=== PATIENT | female | born 1975 | race Caucasian/White ===

== ENCOUNTER 2024-06-12 14:32 | Inpatient (IN) | payer OTHER ==
[~2024-06-12] VITALS: Ht 149.9 cm; Wt 58.1 kg
[2024-06-12 15:20] VITALS: BP 91/62; PULSE 78; RESP 17; TEMP 98.4; O2SAT 100
[2024-06-12] MEDS ORDERED: ULTRAM 50MG50 MG PO (15:27)
[2024-06-12] MEDS ORDERED: DOXYCYCLINE HY100 MG PO (15:27)
[2024-06-12] MEDS ORDERED: VALIUM10 MG PO (15:27)
[2024-06-12 16:20] VITALS: BP 91/62; PULSE 78; RESP 17; TEMP 98.4; O2SAT 100
[2024-06-12] MEDS: SODIUM CHLORIDE 0.9% 1000ML 1,000 ML IV SCH (17:25)
[2024-06-12] MEDS: Morphine 2mg Syringe 2 MG/ML SYR IV PRN (17:27)
[2024-06-12 17:56] LABS: ALBUMIN 3.1 g/dL (3.5-5.0); ALBUMIN/GLOBULIN RATIO 0.7 (0.8-2.0); ANION GAP 14.3 mmol/L (8-16); BILIRUBIN,TOTAL 0.5 mg/dL (0.2-1.2); CALCIUM 8.9 mg/dL (8.4-10.2); CREATININE, SERUM 0.73 mg/dL (0.57-1.11); POTASSIUM 4.3 mmol/L (3.5-5.1); TOTAL PROTEIN 7.3 g/dL (6.5-8.1)
[2024-06-12 18:00] VITALS: BP 98/51
[2024-06-12] MEDS: NICOTINE 14 MG/EA PATCH TOP SCH (18:20)
[2024-06-12 20:41] VITALS: BP 95/63; PULSE 80; RESP 18; TEMP 98.2; O2SAT 100
[2024-06-12 21:00] VITALS: BP 95/63; PULSE 80; RESP 18; TEMP 98.2; O2SAT 100
[2024-06-12] MEDS ORDERED: DIAZEPAM 5 MG TAB PO PRN (23:30)
[2024-06-13 00:20] VITALS: BP 104/77; PULSE 77; RESP 17; TEMP 98.9; O2SAT 99
[2024-06-13] MEDS: DIAZEPAM 5 MG TAB PO SCH (00:24)
[2024-06-13 04:00] VITALS: BP 86/55; PULSE 71; RESP 17; TEMP 98; O2SAT 100
[2024-06-13 05:44] LABS: BASOPHILS # (AUTO) 0.1 (0.0-0.1); BASOPHILS % 0.6 % (0.0-1.0); EOSINOPHILS # (AUTO) 0.3 (0.0-0.4); EOSINOPHILS % 3.1 % (0.0-6.0); HEMATOCRIT 38.9 % (34.2-44.1); HEMOGLOBIN 12.3 g/dL (12.0-16.0); LYMPHOCYTES # (AUTO) 3.3 (1.0-3.2); LYMPHOCYTES % 41.6 % (18.0-39.1); MEAN CORPUSCULAR HEMOGLOBIN 32.2 pg (28-32); MEAN CORPUSCULAR HGB CONC 31.6 g/dL (31-35); MEAN CORPUSCULAR VOLUME 101.8 fL (81-99); MONOCYTES % 12.2 % (4.4-11.3); NEUTROPHILS # (AUTO) 3.4 (2.1-6.9); NEUTROPHILS % 42.1 % (38.7-80.0); PLATELET COUNT 329 x10e3/uL (140-360); RED BLOOD COUNT 3.82 x10e6/uL (3.6-5.1); RED CELL DISTRIBUTION WIDTH 11.9 % (11.7-14.4); WHITE BLOOD COUNT 7.96 x10e3/uL (4.8-10.8)
[2024-06-13 06:13] LABS: ALBUMIN 2.8 g/dL (3.5-5.0); ALBUMIN/GLOBULIN RATIO 0.7 (0.8-2.0); ANION GAP 13.2 mmol/L (8-16); BILIRUBIN,TOTAL 0.3 mg/dL (0.2-1.2); CALCIUM 8.7 mg/dL (8.4-10.2); CREATININE, SERUM 0.7 mg/dL (0.57-1.11); POTASSIUM 4.2 mmol/L (3.5-5.1); TOTAL PROTEIN 6.7 g/dL (6.5-8.1)
[2024-06-13 08:12] LABS: BASOPHILS % (MANUAL) 3 % (0-1.5); EOSINOPHILS % (MANUAL) 3 % (0-7); LYMPHOCYTES % (MANUAL) 42 % (19-48); MONOCYTES % (MANUAL) 7 % (3.4-9.0); NEUTROPHILS % (MANUAL) 45 % (40-74)
[2024-06-13 08:13] LABS: PLATELET ESTIMATE ADEQUATE; PLATELET MORPHOLOGY COMMENT NORMAL; RBC MORPHOLOGY COMMENT ABNORMAL
[2024-06-13 09:09] VITALS: BP 101/66; PULSE 84; RESP 17; TEMP 97.9; O2SAT 96
[2024-06-13 09:25] VITALS: BP 101/66; PULSE 84; RESP 17; TEMP 97.9; O2SAT 96
[2024-06-13 11:33] VITALS: BP 99/63; PULSE 78; RESP 15; TEMP 98; O2SAT 96
[2024-06-13 16:22] LABS: HEPATITIS B SURFACE AG (P) Nonreactive; HEPATITIS C ANTIBODY Nonreactive
== END 2024-06-13 12:59 | disposition left against medical advice (07) | DRG 446 ==
LOC: MED/SURG3 14:59
PROVIDERS: ADMIT Internal Medicine; ATTEND Internal Medicine
DX: K83.8 Other specified diseases of biliary tract (principal); K59.09 Other constipation; K21.9 Gastro-esophageal reflux disease without esophagitis; R19.5 Other fecal abnormalities; Z11.52 Encounter for screening for COVID-19; Z53.29 Procedure and treatment not carried out because of patient's decision for other reasons
CPT/HCPCS: 36415; 74181; 80053; 83690; 85025; 86301; 99252; J2270; J2470; J7030; U0002